=== PATIENT | female | born 1955 | race Caucasian/White ===

== ENCOUNTER 2019-04-04 07:39 | Inpatient (IN) | payer OTHER ==
[~2019-04-04] VITALS: Ht 154.9 cm; Wt 52.0 kg
[~2019-04-04 07:39] MED LIST: VITAMINS
[2019-04-04] MEDS ORDERED: ASPIRIN 325 MG TAB PO ONE (10:00)
[2019-04-04] MEDS ORDERED: LORAZEPAM 2 MG INJ IV ONE (11:00)
[2019-04-04] MEDS ORDERED: ONDANSETRON 4 MG INJ IV PRN (12:00)
[2019-04-04] MEDS ORDERED: ACETAMINOPHEN 325 MG TAB PO PRN (12:00)
--- NOTE | 2019-04-04 12:10 | ERD ---
ER Documentation Chief Complaint Chief Complaint left side BURRELL, dizziness and blurred vision in left eye since thursday HPI Patient is a 63-year-old female with hypertension who presents with dizziness. She has had 2 days of dizziness, left-sided blurry vision, and headache. She tried Advil and her blood pressure medicine. However today she still felt dizzy. The headache is on the left side. She had photophobia and sweating. She felt diffuse weakness. She had word finding difficulty. She denies chest pain or shortness of breath. Upon review of old medical records this is the patient's first visit to the emergency department. Review of the emergency department information exchange system shows visits to 2 separate emergency departments for a total of 2 visits over the past 1 year. ROS All systems reviewed and are negative except as per history of present illness. Medications Home Meds Reported Medications [Vitamins] No Conflict Check 11/14/15 Allergies Allergies: Coded Allergies: No Known Drug Allergies (Unverified Allergy, Unknown, 11/14/15) PMhx/Soc History of Surgery: Yes (L BREAST LUMPECTOMY, CYST REMOVAL NECK) Anesthesia Reaction: No Hx Neurological Disorder: No Hx Respiratory Disorders: Yes (HX BRONCHITIS) Hx Cardiac Disorders: Yes (HTN) Hx Psychiatric Problems: No Hx Miscellaneous Medical Probl: No Hx Alcohol Use: Yes (OCCASIONALLY) Hx Substance Use: No Hx Tobacco Use: Yes (QUIT 2013) Smoking Status: Former smoker FmHx Negative for stroke Physical Exam Vitals Vital Signs Date Temp Pulse Resp B/P (MAP) Pulse Ox O2 O2 Flow FiO2 Time Delivery Rate 04/04/19 97.4 65 15 125/73 100 Room Air 10:00 (90) 04/04/19 97.4 79 18 144/63 98 07:43 (90) Physical Exam Const: No acute distress Head: Atraumatic Eyes: Normal Conjunctiva ENT: Normal External Ears, Nose and Mouth. Neck: Full range of motion. No meningismus. Resp: Clear to auscultation bilaterally Cardio: Regular rate and rhythm, no murmurs Abd: Soft, non tender, non distended. Normal bowel sounds Skin: No petechiae or rashes Back: No midline or flank tenderness Ext: No cyanosis, or edema Neur: Awake and alert, patient reports left-sided blurry vision, material reprocessing associate strength is equal, no slurred speech at this time, no facial droop Psych: Normal Mood and Affect Result Diagram: 04/04/19 0835 04/04/19 0835 Results 24 hrs Laboratory Tests Test 04/04/19 08:25 04/04/19 08:35 Urine Color STRAW Urine Clarity CLEAR Urine pH 6.0 Urine Specific [place] 1.004 Urine Ketones NEGATIVE mg/dL Urine Nitrite NEGATIVE mg/dL Urine Bilirubin NEGATIVE mg/dL Urine Urobilinogen NEGATIVE mg/dL Urine Leukocyte Esterase NEGATIVE Jc/ul Urine Hemoglobin NEGATIVE mg/dL Urine Glucose NEGATIVE mg/dL Urine Total Protein NEGATIVE mg/dl Urine Opiates Screen Negative Urine Barbiturates Negative Urine Amphetamines Screen Negative Urine Benzodiazepines Screen Negative Urine Cocaine Screen Negative Urine Cannabinoids Negative White Blood Count 4.1 10^3/ul Red Blood Count 3.97 10^6/ul Hemoglobin 12.2 g/dl Hematocrit 35.9 % Mean Corpuscular Volume 90.4 fl Mean Corpuscular Hemoglobin 30.7 pg Mean Corpuscular Hemoglobin Concent 34.0 g/dl Red Cell Distribution Width 13.8 % Platelet Count 262 10^3/UL Mean Platelet Volume 9.4 fl Immature Granulocytes % 0.200 % Neutrophils % 56.7 % Lymphocytes % 28.9 % Monocytes % 8.6 % Eosinophils % 5.1 % Basophils % 0.5 % Nucleated Red Blood Cells % 0.0 /100WBC Immature Granulocytes # 0.010 10^3/ul Neutrophils # 2.3 10^3/ul Lymphocytes # 1.2 10^3/ul Monocytes # 0.4 10^3/ul Eosinophils # 0.2 10^3/ul Basophils # 0.0 10^3/ul Nucleated Red Blood Cells # 0.0 10^3/ul Prothrombin Time 11.9 Sec Prothrombin Time Ratio 0.9 INR International Normalized Ratio 0.87 Activated Partial Thromboplast Time 29.0 Sec Sodium Level 139 mmol/L Potassium Level 4.4 mmol/L Chloride Level 105 mmol/L Carbon Dioxide Level 27 mmol/L Anion Gap 7 Blood Urea Nitrogen 16 mg/dl Creatinine 0.67 mg/dl Est Glomerular Filtrat Rate mL/min > 60 mL/min Glucose Level 92 mg/dl Hemoglobin A1c 5.0 % Calcium Level 9.8 mg/dl Troponin I < 0.012 ng/ml Triglycerides Level 62 mg/dl Cholesterol Level 277 mg/dl LDL Cholesterol, Calculated 161 mg/dl HDL Cholesterol 104 mg/dl Cholesterol/HDL Ratio 2.6 RATIO Current Medications Medications Dose Sig/Zane Start Time Status Last (Trade) Ordered Route PRN Stop Time Admin Dose Reason Admin Aspirin 325 mg ONCE ONCE 04/04/19 DC 04/04/19 (Aspirin) PO 10:00 04/04/19 10:00 10:01 Lorazepam 1 mg ONCE ONCE 04/04/19 DC 04/04/19 (Ativan) IV 11:00 04/04/19 10:59 11:01 Ondansetron 4 mg ER BRIDGE 04/04/19 HCl (Zofran PRN IV 12:00 04/05/19 Inj) NAUSEA/VOMITI 11:59 NG 650 mg ER BRIDGE 04/04/19 Acetaminophen PRN PO 12:00 04/05/19 (Tylenol .MILD PAIN 11:59 Tab) 1-3 OR TEMP Procedures/MDM CT brain negative per radiology. NIH stroke scale and bedside swallow evaluation performed by nursing. She is a 63-year-old female with hypertension who presents with dizziness, blurred vision, and headache. I am concerned about acute stroke. CT scan shows no sign of bleed or mass. Patient was given aspirin after she passed a swallow evaluation. She will be admitted to the care of Dr. Villarreal from the panel team to a telemetry bed. She will need stroke work-up while admitted. She is outside the window for TPA as her symptoms started 2 days ago. She is outside the window for mechanical retrieval or procedure as well. The patient will be admitted to a telemetry inpatient bed. Departure Diagnosis: Primary Impression: Stroke CVA mechanism: unspecified Qualified Codes: I63.9 - Cerebral infarction, unspecified Additional Impression: Dizziness Condition: YANCI Aquino MD Apr 04, 2019 12:10
[2019-04-04] MEDS ORDERED: ENAL2.5T PO (12:40)
[2019-04-04] MEDS ORDERED: OMEP20CA16 PO (12:41)
[2019-04-04] MEDS ORDERED: CLON0.5T14 PO (12:41)
[2019-04-04] MEDS ORDERED: ZOLPIDEM 5 MG TAB PO PRN (16:30)
[2019-04-04] MEDS ORDERED: HYDROCODONE/APAP (5/325) TAB PO PRN (16:30)
[2019-04-04] MEDS ORDERED: NACL 0.9% 3 ML SYG IV SCH (16:30)
--- NOTE | 2019-04-04 16:30 | HP ---
Date/Time of Note Date/Time of Note DATE: 04/04/19 TIME: 16:20 Assessment/Plan VTE Prophylaxis SCD applied (from Nsg): Yes Pharmacological prophylaxis: heparin Lines/Catheters IV Catheter Type (from Nrsg): Saline Lock Assessment/Plan Hospital Course A/P: 63 yo female wihtout signficant [facility] who presents with acute onset of L eye b lurry vision with occipital scalp feeling of heat as well as gait imbalance - Acutely this is most concerning for CVA with possible amaurosis fugax. CT head wihtout acute findings. Will obtain MRI brain as well as CT of the neck and cerebral vasculature - Echocardiogram and telemetry monitoring in case this is CVA - If stroke workup is negative she will need to see an hospital education coordinator as an outpatient as we do not have this service available here as an inpatient Result Diagram: 04/04/19 0835 04/04/19 0835 Results 24hrs Laboratory Tests Test 04/04/19 08:25 04/04/19 08:35 Urine Color STRAW Urine Clarity CLEAR Urine pH 6.0 Urine Specific [place] 1.004 Urine Ketones NEGATIVE Urine Nitrite NEGATIVE Urine Bilirubin NEGATIVE Urine Urobilinogen NEGATIVE Urine Leukocyte Esterase NEGATIVE Urine Hemoglobin NEGATIVE Urine Glucose NEGATIVE Urine Total Protein NEGATIVE Urine Opiates Screen Negative Urine Barbiturates Negative Urine Amphetamines Screen Negative Urine Benzodiazepines Screen Negative Urine Cocaine Screen Negative Urine Cannabinoids Negative White Blood Count 4.1 L Red Blood Count 3.97 L Hemoglobin 12.2 Hematocrit 35.9 L Mean Corpuscular Volume 90.4 Mean Corpuscular Hemoglobin 30.7 Mean Corpuscular Hemoglobin Concent 34.0 Red Cell Distribution Width 13.8 Platelet Count 262 Mean Platelet Volume 9.4 Immature Granulocytes % 0.200 Neutrophils % 56.7 Lymphocytes % 28.9 Monocytes % 8.6 Eosinophils % 5.1 Basophils % 0.5 Nucleated Red Blood Cells % 0.0 Immature Granulocytes # 0.010 Neutrophils # 2.3 Lymphocytes # 1.2 Monocytes # 0.4 Eosinophils # 0.2 Basophils # 0.0 Nucleated Red Blood Cells # 0.0 Prothrombin Time 11.9 Prothrombin Time Ratio 0.9 INR International Normalized Ratio 0.87 Activated Partial Thromboplast Time 29.0 Sodium Level 139 Potassium Level 4.4 Chloride Level 105 Carbon Dioxide Level 27 Anion Gap 7 Blood Urea Nitrogen 16 Creatinine 0.67 Est Glomerular Filtrat Rate mL/min > 60 Glucose Level 92 Hemoglobin A1c 5.0 Calcium Level 9.8 Troponin I < 0.012 Triglycerides Level 62 Cholesterol Level 277 H LDL Cholesterol, Calculated 161 HDL Cholesterol 104 H Cholesterol/HDL Ratio 2.6 HPI/ROS Admit Date/Time Admit Date/Time Hx of Present Illness 63 yo female without significant PMH who presents with L eye blurriness, head ache, imbalance since this AM Patient states she developed blurry vision in her left eye this AM. No pain or any other symtposm to eye. She also felt what she describes as a hot sensation over her scalp on the left to the occiput. She denies any focal weakness or numbness but says she felt imbalanced on her feet since this occurred. Denies headache. Visiual symptoms still present ROS Constitutional: no complaints, improved Eyes: no complaints ENT: no complaints Respiratory: no complaints Cardiovascular: no complaints Gastrointestinal: no complaints Genitourinary: no complaints Musculoskeletal: no complaints Skin: no complaints Neurologic: no complaints Endocrine: no complaints Lymphatic: no complaints Psychological: no complaints, nl mood/affect Immunologic: no complaints PMH/Family/Social Past Medical History Medical History: no pertinent history Medications Current Medications Ondansetron HCl (Zofran Inj) 4 mg ER BRIDGE PRN IV NAUSEA/VOMITING; Start 04/04/19 at 12:00; Stop 04/05/19 at 11:59 Acetaminophen (Tylenol Tab) 650 mg ER BRIDGE PRN PO .MILD PAIN 1-3 OR TEMP; Start 04/04/19 at 12:00; Stop 04/05/19 at 11:59 IV Flush (NS 3 ml) 3 ml PER PROTOCOL IV ; Start 04/04/19 at 16:30; Status UNV Acetaminophen/ Hydrocodone Bitart ([place] (5/325)) 1 tab Q6H PRN PO .MOD PAIN 4- 6; Start 04/04/19 at 16:30; Status UNV Zolpidem Tartrate (Ambien) 5 mg QHS PRN PO .INSOMNIA; Start 04/04/19 at 16:30; Status UNV Coded Allergies: No Known Drug Allergies (Unverified Allergy, Unknown, 04/04/19) Past Surgical History Past Surgical Hx: no surgical history Family History Significant Family History: no pertinent family hx Social History Smoking Status: Former smoker Drug Use: none Exam/Review of Systems Vital Signs Vitals Vital Signs Date Temp Pulse Resp B/P (MAP) Pulse Ox O2 O2 Flow FiO2 Time Delivery Rate 04/04/19 97.4 71 15 110/68 97 Room Air 12:12 (82) Exam Constitutional: alert, oriented, well developed Psych: no complaints, nl mood/affect Head: normocephalic, atraumatic Eyes: nl conjunctiva, EOMI, nl lids, nl sclera, PERRL ENMT: nl external ears & nose, nl lips & teeth, nl nasal mucosa & septum Neck: supple, non-tender Respiratory: clear to auscultation, normal air movement Cardiovascular: regular rate and rhythm, nl pulses Gastrointestinal: soft, nl liver, spleen, non-tender Musculoskeletal: nl extremities to inspection Extremities: normal pulses Neurological: [employer] II-XII intact, nl mental status, nl speech, nl strength Skin: nl turgor; No rash or lesions Lymph: nl lymph nodes BRISEYDA WHITLEY MD Apr 04, 2019 16:30
[2019-04-04] MEDS ORDERED: SOD CHLORIDE 0.9% 100 ML ONE (16:42)
[2019-04-04] MEDS ORDERED: IOHEXOL 100 ML ONE (16:42)
--- NOTE | 2019-04-04 20:39 | CONSI ---
Assessment/Plan Assessment/Plan Assessment/Plan (Recall) 63 F c HTN, who presents for evaluation of blurred vision, headache, and gait imbalance...for which neurology is consulted. The clinical picture is most ominously concerning for posterior circulation stroke. Head CT is unremarkable CTA Head and Neck is unrevealing. P: Await MRI brain for further characterization Await Echocardiogram Start asa 81mg daily, and Lipitor 80 mg hs for now Add ESR, RPR PT/OT/ST as necessary Other management per primary Will follow clinically Consultation Date/Type/Reason Admit Date/Time Type of Consult Neurology Reason for Consultation blurred vision, headache, gait imbalance Requesting Provider: BRISEYDA WHITLEY MD Date/Time of Note DATE: 04/04/19 TIME: 20:33 Hx of Present Illness 63 yo female without significant PMH who presents with L eye blurriness, head ache, imbalance since this AM Patient states she developed blurry vision in her left eye this AM. No pain or any other symtposm to eye. She also felt what she describes as a hot sensation over her scalp on the left to the occiput. She denies any focal weakness or numbness but says she felt imbalanced on her feet since this occurred. Denies headache. Visiual symptoms still present per HPI Objective Exam Vitals Vital Signs Date Temp Pulse Resp B/P (MAP) Pulse Ox O2 O2 Flow FiO2 Time Delivery Rate 04/04/19 70 18 116/77 98 Room Air 17:30 (90) 04/04/19 97.4 12:12 Exam Patient currently unavailable for examination Results Result Diagram: 04/04/19 0835 04/04/19 0835 Results 24hrs Laboratory Tests Test 04/04/19 08:25 04/04/19 08:35 Urine Color STRAW Urine Clarity CLEAR Urine pH 6.0 Urine Specific [place] 1.004 Urine Ketones NEGATIVE Urine Nitrite NEGATIVE Urine Bilirubin NEGATIVE Urine Urobilinogen NEGATIVE Urine Leukocyte Esterase NEGATIVE Urine Hemoglobin NEGATIVE Urine Glucose NEGATIVE Urine Total Protein NEGATIVE Urine Opiates Screen Negative Urine Barbiturates Negative Urine Amphetamines Screen Negative Urine Benzodiazepines Screen Negative Urine Cocaine Screen Negative Urine Cannabinoids Negative White Blood Count 4.1 L Red Blood Count 3.97 L Hemoglobin 12.2 Hematocrit 35.9 L Mean Corpuscular Volume 90.4 Mean Corpuscular Hemoglobin 30.7 Mean Corpuscular Hemoglobin Concent 34.0 Red Cell Distribution Width 13.8 Platelet Count 262 Mean Platelet Volume 9.4 Immature Granulocytes % 0.200 Neutrophils % 56.7 Lymphocytes % 28.9 Monocytes % 8.6 Eosinophils % 5.1 Basophils % 0.5 Nucleated Red Blood Cells % 0.0 Immature Granulocytes # 0.010 Neutrophils # 2.3 Lymphocytes # 1.2 Monocytes # 0.4 Eosinophils # 0.2 Basophils # 0.0 Nucleated Red Blood Cells # 0.0 Prothrombin Time 11.9 Prothrombin Time Ratio 0.9 INR International Normalized Ratio 0.87 Activated Partial Thromboplast Time 29.0 Sodium Level 139 Potassium Level 4.4 Chloride Level 105 Carbon Dioxide Level 27 Anion Gap 7 Blood Urea Nitrogen 16 Creatinine 0.67 Est Glomerular Filtrat Rate mL/min > 60 Glucose Level 92 Hemoglobin A1c 5.0 Calcium Level 9.8 Troponin I < 0.012 Triglycerides Level 62 Cholesterol Level 277 H LDL Cholesterol, Calculated 161 HDL Cholesterol 104 H Cholesterol/HDL Ratio 2.6 Past Medical History Medical History: no pertinent history Home Meds Reported Medications Omeprazole* (Omeprazole*) 20 Mg Capsule.dr, 20 MG PO DAILY, #30 CAP 04/04/19 Clonazepam* (Clonazepam*) 0.5 Mg Tablet, 0.5 MG PO NEEDED for ANXIETY, TAB 04/04/19 Enalapril Maleate* (Enalapril Maleate*) 2.5 Mg Tablet, 2.5 MG PO DAILY, TAB 04/04/19 Discontinued Reported Medications [Vitamins] No Conflict Check 11/14/15 Medications Current Medications Ondansetron HCl (Zofran Inj) 4 mg ER BRIDGE PRN IV NAUSEA/VOMITING; Start 04/04/19 at 12:00; Stop 04/05/19 at 11:59 Acetaminophen (Tylenol Tab) 650 mg ER BRIDGE PRN PO .MILD PAIN 1-3 OR TEMP; Sta rt 04/04/19 at 12:00; Stop 04/05/19 at 11:59 IV Flush (NS 3 ml) 3 ml PER PROTOCOL IV ; Start 04/04/19 at 16:30 Acetaminophen/ Hydrocodone Bitart ([place] (5/325)) 1 tab Q6H PRN PO .MOD PAIN 4- 6; Start 04/04/19 at 16:30 Zolpidem Tartrate (Ambien) 5 mg QHS PRN PO .INSOMNIA; Start 04/04/19 at 16:30 Allergies: Coded Allergies: No Known Drug Allergies (Unverified Allergy, Unknown, 04/04/19) Past Surgical History Past Surgical Hx: no surgical history Social History Smoking Status: Former smoker Drug Use: none MALGORZATA RAMSAY Apr 04, 2019 20:39
[2019-04-04] MEDS ORDERED: ATORVASTATIN 80 MG TAB PO SCH (21:00)
[2019-04-04 22:00] VITALS: BP 105/62; PULSE 68; RESP 18
[2019-04-04 22:34] VITALS: Ht 154.9 cm; Wt 52.0 kg
[2019-04-05 00:42] VITALS: BP 110/68; PULSE 65; RESP 18
[2019-04-05 04:38] VITALS: BP 96/59; PULSE 71; RESP 16
[2019-04-05 07:58] VITALS: BP 110/70; PULSE 70; RESP 17
[2019-04-05] MEDS ORDERED: ASPIRIN (EC) 81 MG TAB PO SCH (09:00)
--- NOTE | 2019-04-05 09:31 | CONS ---
Assessment/Plan Assessment/Plan Assessment/Plan (Recall) 63 F c HTN, who presents for evaluation of blurred vision and gait imbalance in the context of headache...for which neurology is consulted. The clinical picture could be consistent w/ migraine. MRI brain is reassuringly negative for an acute posterior circulation stroke. CTA Head and Neck is unrevealing. P: Continued medical management and supportive care per primary PT/OT/ST as necessary Other management per primary Will follow clinically, to recommend additional neurologic studies as necessary Consultation Date/Type/Reason Admit Date/Time Apr 04, 2019 at 11:59 Type of Consult Neurology Reason for Consultation blurred vision, headache, gait imbalance Requesting Provider: BRISEYDA WHITLEY MD Date/Time of Note DATE: 04/05/19 TIME: 09:28 24 HR Interval Summary Free Text/Dictation Continues acute care Exam/Review of Systems Exam Vitals Vital Signs Date Temp Pulse Resp B/P (MAP) Pulse Ox O2 O2 Flow FiO2 Time Delivery Rate 04/05/19 97.6 70 17 110/70 97 07:58 (83) 04/04/19 Room Air 22:00 Results Result Diagram: 04/05/19 0600 04/05/19 0600 Results 24hrs Laboratory Tests Test 04/05/19 06:00 White Blood Count 4.7 L Red Blood Count 3.94 L Hemoglobin 12.1 Hematocrit 35.9 L Mean Corpuscular Volume 91.1 Mean Corpuscular Hemoglobin 30.7 Mean Corpuscular Hemoglobin Concent 33.7 Red Cell Distribution Width 14.2 Platelet Count 263 Mean Platelet Volume 9.3 Immature Granulocytes % 0.200 Neutrophils % 48.5 Lymphocytes % 35.8 Monocytes % 9.6 Eosinophils % 5.5 Basophils % 0.4 Nucleated Red Blood Cells % 0.0 Immature Granulocytes # 0.010 Neutrophils # 2.3 Lymphocytes # 1.7 Monocytes # 0.5 Eosinophils # 0.3 Basophils # 0.0 Nucleated Red Blood Cells # 0.0 Erythrocyte Sedimentation Rate 3 Sodium Level 141 Potassium Level 4.6 Chloride Level 106 Carbon Dioxide Level 29 Anion Gap 6 Blood Urea Nitrogen 18 Creatinine 0.66 Est Glomerular Filtrat Rate mL/min > 60 Glucose Level 86 Hemoglobin A1c 5.0 Calcium Level 9.4 Total Bilirubin 0.6 Direct Bilirubin 0.00 Indirect Bilirubin 0.6 Aspartate Amino Transf (AST/SGOT) 25 Alanine Aminotransferase (ALT/SGPT) 24 Alkaline Phosphatase 47 Total Protein 6.5 Albumin 3.8 Globulin 2.70 Albumin/Globulin Ratio 1.40 Medications Medication Current Medications Ondansetron HCl (Zofran Inj) 4 mg ER BRIDGE PRN IV NAUSEA/VOMITING; Start 04/04/19 at 12:00; Stop 04/05/19 at 11:59 Acetaminophen (Tylenol Tab) 650 mg ER BRIDGE PRN PO .MILD PAIN 1-3 OR TEMP; Start 04/04/19 at 12:00; Stop 04/05/19 at 11:59 IV Flush (NS 3 ml) 3 ml PER PROTOCOL IV ; Start 04/04/19 at 16:30 Acetaminophen/ Hydrocodone Bitart ([place] (5/325)) 1 tab Q6H PRN PO .MOD PAIN 4- 6 Last administered on 04/05/19at 08:48; Admin Dose 1 TAB; Start 04/04/19 at 16:30 Zolpidem Tartrate (Ambien) 5 mg QHS PRN PO .INSOMNIA; Start 04/04/19 at 16:30 Aspirin (Halfprin) 81 mg DAILY PO Last administered on 04/05/19at 08:48; Admin Dose 81 MG; Start 04/05/19 at 09:00 Atorvastatin Calcium (Lipitor) 80 mg HS PO Last administered on 04/04/19at 23:14; Admin Dose 80 MG; Start 04/04/19 at 21:00 MALGORZATA RAMSAY Apr 05, 2019 09:31
[2019-04-05 11:58] VITALS: BP 110/58; PULSE 80; RESP 18
--- NOTE | 2019-04-05 14:20 | PDOCDIS ---
Discharge Instructions DIAGNOSIS Discharge Diagnosis Blurry vision CONDITION [id number] Patient Condition: [id number] Stable FOLLOW UP/APPOINTMENTS Follow-up Plan Make an appointment to see an eye doctor alan to discuss your visual problem BRISEYDA WHITLEY MD Apr 05, 2019 14:20
--- NOTE | 2019-04-05 17:28 | DS ---
Date/Time of Note Date/Time of Note DATE: 04/05/19 TIME: 17:27 Discharge Summary Admission/Discharge Info Admit Date/Time Apr 04, 2019 at 11:59 Discharge Date/Time Apr 05, 2019 at 15:50 Discharge Diagnosis Blurry vision Patient Condition: Stable Hx of Present Illness 63 yo female without significant PMH who presents with L eye blurriness, head ache, imbalance since this AM Patient states she developed blurry vision in her left eye this AM. No pain or any other symtposm to eye. She also felt what she describes as a hot sensation over her scalp on the left to the occiput. She denies any focal weakness or numbness but says she felt imbalanced on her feet since this occurred. Denies headache. Visiual symptoms still present Hospital Course 63 yo female wihtout signficant PMH who presents with acute onset of L eye blurry vision with occipital scalp feeling of heat as well as gait imbalance - Acutely this was most concerning for CVA with possible amaurosis fugax. However, CT head was wihtout acute findings. MRI brain was negative and CT angiography showed no obstructive lesions. Neurology consultation was obtained. Given there is no stroke the patient was cleared for discharge home and was encouraged to follow up promplty with an ophtalmologist as an outpatient Home Meds Reported Medications Omeprazole* (Omeprazole*) 20 Mg Capsule.dr, 20 MG PO DAILY, #30 CAP 04/04/19 Clonazepam* (Clonazepam*) 0.5 Mg Tablet, 0.5 MG PO NEEDED for ANXIETY, TAB 04/04/19 Enalapril Maleate* (Enalapril Maleate*) 2.5 Mg Tablet, 2.5 MG PO DAILY, TAB 04/04/19 Discontinued Reported Medications [Vitamins] No Conflict Check 11/14/15 Follow-up Plan Make an appointment to see an eye doctor alan to discuss your visual problem Primary Care Provider Care Physician No Primary Pending Labs Laboratory Tests Test 04/05/19 06:00 White Blood Count 4.7 10^3/ul (4.8-10.8) Red Blood Count 3.94 10^6/ul (4.20-5.40) Hemoglobin 12.1 g/dl (12.0-16.0) Hematocrit 35.9 % (37.0-47.0) Mean Corpuscular Volume 91.1 fl (82.0-101.0) Mean Corpuscular Hemoglobin 30.7 pg (29.0-33.0) Mean Corpuscular Hemoglobin Concent 33.7 g/dl (32.0-37.0) Red Cell Distribution Width 14.2 % (11.5-14.5) Platelet Count 263 10^3/UL (140-415) Mean Platelet Volume 9.3 fl (7.4-10.4) Immature Granulocytes % 0.200 % (0.001-0.429) Neutrophils % 48.5 % (39.0-77.0) Lymphocytes % 35.8 % (15.0-51.0) Monocytes % 9.6 % (0.0-11.0) Eosinophils % 5.5 % (0.0-7.0) Basophils % 0.4 % (0.0-2.0) Nucleated Red Blood Cells % 0.0 /100WBC (0.0-0.0) Immature Granulocytes # 0.010 10^3/ul (0.0-0.031) Neutrophils # 2.3 10^3/ul (1.6-7.5) Lymphocytes # 1.7 10^3/ul (0.8-2.9) Monocytes # 0.5 10^3/ul (0.3-0.9) Eosinophils # 0.3 10^3/ul (0.0-0.5) Basophils # 0.0 10^3/ul (0.0-0.1) Nucleated Red Blood Cells # 0.0 10^3/ul (0.0-0.0) Erythrocyte Sedimentation Rate 3 mm/Hr (0-30) Sodium Level 141 mmol/L (135-144) Potassium Level 4.6 mmol/L (3.5-5.1) Chloride Level 106 mmol/L (97-110) Carbon Dioxide Level 29 mmol/L (21-31) Anion Gap 6 (5-13) Blood Urea Nitrogen 18 mg/dl (7-20) Creatinine 0.66 mg/dl (0.44-1.00) Est Glomerular Filtrat Rate mL/min > 60 mL/min (>60) Glucose Level 86 mg/dl (70-220) Hemoglobin A1c 5.0 % (0-5.9) Calcium Level 9.4 mg/dl (8.4-10.2) Total Bilirubin 0.6 mg/dl (0.2-1.3) Direct Bilirubin 0.00 mg/dl (0.00-0.20) Indirect Bilirubin 0.6 mg/dl (0-1.1) Aspartate Amino Transf (AST/SGOT) 25 IU/L (15-46) Alanine Aminotransferase (ALT/SGPT) 24 IU/L (13-69) Alkaline Phosphatase 47 IU/L (42-121) Total Protein 6.5 g/dl (6.1-8.1) Albumin 3.8 g/dl (3.3-4.9) Globulin 2.70 g/dl (1.3-3.2) Albumin/Globulin Ratio 1.40 BRISEYDA WHITLEY MD Apr 05, 2019 17:28
--- NOTE | 2019-04-05 19:28 | RADRPT ---
Echocardiogram Report Patient Name: Stella LUNAnt ID: [id number] : [id number] (63y 6m)Study Date: 04/05/2019 7:51:11 AM Gender: FAccession #: [id number] Tech: Adi Bernal [facility] Location: [id number] Ref.Physician: BRISEYDA WHITLEY Height(Cm): BSA: Weight(Kg): Quality: AdequateOrder Physician: BRISEYDA WHITLEY Account #: Procedures: Echocardiographic Report: Transthoracic echocardiogram with complete 2D, M-Mode, and doppler examination. Indications: Stroke. Measurements: 2D/M Mode Doppler Measurement Value Normal Range Measurement Value Normal Range LVIDd 2D 3.8 [ 3.8 - 5.2 ] cm AV Peak Med 1.0 [ 100.0 - 170.0 ] cm/sec LVIDs 2D 2.4 [ 2.2 - 3.5 ] cm AV Peak PG 4.0 [ 2.0 - 9.0 ] mmHg LVPWd 2D 0.7 [ 0.6 - 0.9 ] cm LVOT Peak Med 0.8 [ 70.0 - 110.0 ] cm/sec IVSd 2D 0.9 [ 0.6 - 0.9 ] cm LVOT Peak PG 3.0 [ 2.0 - 6.0 ] mmHg AoR Diam 2D 2.9 [ 2.3 - 3.1 ] cm MV E Peak Med 0.8 [ 60.0 - 130.0 ] cm/sec EDV 2D 62.3 [ 46.0 - 106.0 ] ml MV A Peak Med 0.6 [ 100.0 - 120.0 ] cm/sec ESV 2D 20.2 [ 14.0 - 42.0 ] ml MV E/A 1.4 [ 0.8 - 1.5 ] ratio EF 2D 67.6 [ 54.0 - 74.0 ] percent MV Decel Time 158 [ 104 - 258 ] msec LA Dimen 2D 2.5 [ 2.7 - 3.8 ] cm Lat E` Med 0.1 [ 10.0 - 15.0 ] cm/sec Lateral E/E` 6.0 [ 1.0 - 2.0 ] ratio MV E/A 1.4 [ 0.8 - 1.5 ] ratio Findings: Left Ventricle: Normal left ventricular systolic function. Normal left ventricular cavity size. Normal left ventricular wall thickness. Ejection fraction is visually estimated at 60 %. Right Ventricle: Normal right ventricular size. Normal right ventricular systolic function. Left Atrium: The left atrium is normal in size. Right Atrium: The right atrium is normal in size. Mitral Valve: Normal appearance and function of the mitral valve with trace physiologic regurgitation. Aortic Valve: Normal appearance of the aortic valve. No significant aortic stenosis or insufficiency. Tricuspid Valve: Normal appearance and function of the tricuspid valve with trace physiologic regurgitation. Pulmonic Valve: Pulmonic valve not well visualized. Pericardium: Normal pericardium with no significant pericardial effusion. Aorta: Normal aortic root. IVC: Normal size and normal respiratory collapse consistent with normal right atrial pressure. Conclusions: Normal left ventricular systolic function. Normal left ventricular cavity size. Normal left ventricular wall thickness. Ejection fraction is visually estimated at 60 %. Normal right ventricular size. Normal right ventricular systolic function. The left atrium is normal in size. The right atrium is normal in size. No significant valvular stenosis or regurgitation seen. Normal pericardium with no significant pericardial effusion. Electronically Signed By: Stoney Nguyen 2019-04-05 19:27:36 PDT
== END 2019-04-05 15:50 | disposition home or self-care (01) | DRG 103 ==
LOC: E/R 07:39 → TEL 11:59 → SUATTDRO 15:33
PROVIDERS: ADMIT Internal Medicine; ATTEND Internal Medicine
DX: R51 Headache (principal); H53.8 Other visual disturbances; I10 Essential (primary) hypertension; R42 Dizziness and giddiness
CPT/HCPCS: 36415; 70450; 70496; 70498; 70551; 71045; 80048; 80053; 80061; 80307; 81003; 83036; 84484; 85025; 85610; 85651; 85730; 86592; 93005; 93306; 96374; 97161; J2060; Q9967